=== PATIENT | female | born 1965 | race Caucasian/White ===

== ENCOUNTER 2017-05-04 17:33 | Emergency (ER) | payer SELFPAY ==
[~2017-05-04] VITALS: Ht 152.4 cm; Wt 66.7 kg
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
[2017-05-04 19:05] LABS: HEMOGLOBIN 14.8 g/dL (12.2-16.2); LYMPH # 5.1 K/mm3 (0.7-4.5); LYMPH % 47.8 % (10-50.0)
--- NOTE | 2017-05-04 19:17 | RADIOLOGY REPORT PS360 ---
LOWER LEG-LT HISTORY: left anterior lower leg wound, rapidly progressing ORDERING PHYSICIAN: LYRIC TANG APRN PATIENT AGE: 52 years COMPARISON: None FINDINGS: There are no previous studies available for comparison. There is a defect within the proximal tibia laterally and anteriorly with multiple oblong opacities. This likely represents a prior surgical defect with either bone cement packing or packing of some type of antibiotic beads. Please correlate with clinical findings. Correlation with old radiographs also needed. There are mild osteoarthritic changes of the knee. The mid and distal aspect of the tibia and fibula have an unremarkable appearance. IMPRESSION: Postsurgical changes of the proximal tibia laterally. Otherwise negative left tib-fib
[2017-05-04] MEDS ORDERED: BACTRIM DS 8001 TA1 PO (20:08)
[2017-05-04] MEDS ORDERED: BACTROBAN2% TP (20:08)
[2017-05-04 20:20] VITALS: BP 140/74
== END 2017-05-04 20:21 | disposition home or self-care (01) ==
LOC: ER 17:33 → UTC 17:48
PROVIDERS: Nurse Practitioner Family
DX: L03.116 Cellulitis of left lower limb (principal); E11.9 Type 2 diabetes mellitus without complications; Z79.4 Long term (current) use of insulin; Z72.0 Tobacco use